=== PATIENT | male | born 2000 | race Caucasian/White ===

== ENCOUNTER 2024-04-01 20:33 | Emergency (ER) | payer SELFPAY ==
[2024-04-01 20:43] VITALS: BP 122/68; PULSE 73; RESP 18; TEMP 98; BMI 25.6
[2024-04-01] MEDS ORDERED: AMOX TR/POT CLAV 875MG/125MG TABLETS (FP) PO ONE (22:14)
[2024-04-01] MEDS ORDERED: AMOX TR/POT CLAV 875MG/125MG TABLETS (FP) ONE (22:24)
== END 2024-04-01 22:40 | disposition home or self-care (01) ==
LOC: JERFT 20:33
DX: S81.801A Unspecified open wound, right lower leg, initial encounter (principal); W22.8XXA Striking against or struck by other objects, initial encounter; Y93.79 Activity, other specified sports and athletics
CPT/HCPCS: 99283-25